=== PATIENT | male | born 1990 | race Hispanic/Latino ===

== ENCOUNTER 2020-11-19 21:26 | Emergency (ER) | payer OTHER ==
[~2020-11-19] VITALS: Ht 142.2 cm; Wt 64.4 kg
[2020-11-19] MEDS ORDERED: CEPHALEXIN500 MG PO ×2 (22:02→22:54)
[2020-11-19] MEDS ORDERED: BACTRIM DS TAB1 EACH PO ×2 (22:02→22:53)
[2020-11-19] MEDS ORDERED: IBUPROFEN800 MG PO (22:03)
[2020-11-19] MEDS ORDERED: MOTRIN800 MG PO (22:53)
[2020-11-19] MEDS ORDERED: KEFLEX125 MG/5 M PO (22:53)
== END 2020-11-19 22:20 | disposition home or self-care (01) ==
LOC: FSED 21:55
DX: L73.2 Hidradenitis suppurativa (principal); E03.9 Hypothyroidism, unspecified; E78.5 Hyperlipidemia, unspecified
CPT/HCPCS: 10060; 99283